=== PATIENT | male | born 1975 | race Caucasian/White ===

== ENCOUNTER 2021-01-20 14:00 | Emergency (ER) | payer OTHER ==
[2021-01-20] MEDS ORDERED: Bacitracin Oint 1 GM U/D Packet TOP ONE (14:26)
--- NOTE | 2021-01-20 14:27 | EDM.PDOC ---
ED HPI GENERAL MEDICAL PROBLEM - General Chief Complaint: Laceration Stated Complaint: CUT LEFT POINTER FINGER Time Seen by Provider: 01/20/21 14:20 Source of Information: Reports: Patient, Family History Limitations: Reports: No Limitations - History of Present Illness INITIAL COMMENTS - FREE TEXT/NARRATIVE: 45-year-old male was moving a smoker when it slipped and cut his index finger on his left hand. He has a 2 cm laceration along the radial aspect of the nail on the index finger, it is into the subcutaneous tissue and slightly opened. No other injury. Onset: Sudden Duration: Hour(s): (Within the last hour) Location: Reports: Upper Extremity, Left Associated Symptoms: Reports: No Other Symptoms - Related Data Allergies Allergy/AdvReac Type Severity Reaction Status Date / Time SEASONAL Allergy Wheezing Uncoded 09/13/20 09:14 Social & Family History - Tobacco Use Tobacco Use Status *Q: Never Tobacco User Second Hand Smoke Exposure: No ED ROS GENERAL - Review of Systems Review Of Systems: See Below Constitutional: Denies: Fever, Chills Respiratory: Reports: No Symptoms Cardiovascular: Reports: No Symptoms GI/Abdominal: Reports: No Symptoms Skin: Reports: Other (See HPI) Neurological: Denies: Paresthesia Psychiatric: Reports: No Symptoms ED EXAM, SKIN/RASH Exam: See Below Exam Limited By: No Limitations General Appearance: Alert, No Apparent Distress Neck: Normal Inspection Respiratory/Chest: No Respiratory Distress Extremities: Other (Exam is otherwise limited to the left hand. Patient has a 2 cm laceration extending from the tip of the finger down the radial aspect along the nail to just distal to the DIP joint. Laceration is just over 2 cm) Neurological: Alert, Oriented Psychiatric: Normal Affect, Normal Mood Course - Vital Signs Last Recorded V/S: Last Vital Signs Temp 98.1 F 01/20/21 14:10 Pulse 68 01/20/21 14:10 Resp 16 01/20/21 14:10 BP 137/95 H 01/20/21 14:10 Pulse Ox 95 01/20/21 14:10 - Orders/Labs/Meds Meds: Medications Discontinued Medications Generic Name Dose Route Start Last Admin Trade Name Freq PRN Reason Stop Dose Admin Bacitracin 1 dose 01/20/21 14:26 Bacitracin Oint 1 Gm U/D Packet TOP 01/20/21 14:27 ONETIME ONE Lidocaine HCl 5 ml 01/20/21 14:26 Lidocaine 1% 5 Ml Sdv INJECT 01/20/21 14:27 ONETIME ONE - Re-Assessments/Exams Free Text/Narrative Re-Assessment/Exam: 01/20/21 14:46 Laceration was anesthetized with 1% lidocaine, cleansed thoroughly with saline and closed with four 5-0 Ethilon sutures. Topical bacitracin was applied and Band-Aids. Sutures can come out in 9 days. Departure - Departure Time of Disposition: 14:57 Disposition: Home, Self-Care 01 Clinical Impression: Laceration of left index finger Qualifiers: Encounter type: initial encounter Damage to nail status: without damage Foreign body presence: without foreign body Qualified Code(s): S61.211A - Laceration without foreign body of left index finger without damage to nail, initial encounter - Discharge Information Instructions: Laceration Care, Adult Referrals: Radha Pizano [facility] [Primary Care Provider] - Forms: ED Department Discharge Care Plan Goals: Keep wound covered and clean while healing. Sutures can come out in 8 or 9 days, recheck sooner if concerns of infection or not healing satisfactorily. Sepsis Event Note (ED) - Evaluation Sepsis Screening Result: No Definite Risk
== END 2021-01-20 15:04 | disposition home or self-care (01) ==
LOC: JP.ED 14:00
DX: S61.211A Laceration without foreign body of left index finger without damage to nail, initial encounter (principal); F17.200 Nicotine dependence, unspecified, uncomplicated; Z91.09 Other allergy status, other than to drugs and biological substances; W26.8XXA Contact with other sharp object(s), not elsewhere classified, initial encounter
CPT/HCPCS: 12001; 99282-25

== ENCOUNTER 2023-02-19 21:36 | Observation (INO) | payer OTHER ==
[2023-02-19] MEDS ORDERED: Albuterol/Ipratropium 3.0-0.5 MG/3 ML Neb Soln NEB ONE ×3 (21:48→23:08)
[2023-02-19 22:01] LABS: BASOPHILS ABSOLUTE AUTO 0.02 K/uL (0.00-0.10); BASOPHILS PERCENT AUTO 0.3 % (0.1-1.3); EOSINOPHILS ABSOLUTE AUTO 0.17 K/uL (0.00-0.40); EOSINOPHILS PERCENT AUTO 2.5 % (0.0-5.4); HEMATOCRIT 42.7 % (38.4-49.7); HEMOGLOBIN 15.3 g/dL (12.9-16.9); IMMATURE GRAN ABSOLUTE AUTO 0.02 K/uL (0.00-0.23); IMMATURE GRAN PERCENT AUTO 0.3 % (0.0-0.7); LYMPHOCYTES ABSOLUTE AUTO 0.81 K/uL (0.8-3.3); MEAN CORPUSCULAR HEMOGLOBIN 30.5 pg (31.6-35.5); MEAN CORPUSCULAR HGB CONC 35.8 g/dL (31.6-35.5); MEAN CORPUSCULAR VOLUME 85.1 fL (81.4-99.0); MONOCYTES ABSOLUTE AUTO 0.94 K/uL (0.20-0.90); MONOCYTES PERCENT AUTO 13.9 % (3.3-12.6); NEUTROPHILS ABSOLUTE AUTO 4.79 K/uL (1.0-7.6); PLATELET COUNT,PLT 197 K/uL (130-375); RED BLOOD CELL COUNT 5.02 M/uL (4.14-5.76); WHITE BLOOD CELL COUNT,WBC 6.8 K/uL (3.2-11.0)
[2023-02-19] MEDS ORDERED: Dexamethasone 4 MG/ML SDV IVPUSH ONE (22:13)
[2023-02-19 22:16] LABS: CALCIUM 8.5 mg/dL (8.5-10.1); CREATININE 1.2 mg/dL (0.8-1.3); EST CRCL DRUG DOSING (CG) 81.05 mL/min; POTASSIUM,K 3.4 mmol/L (3.6-5.2)
[2023-02-19 22:18] LABS: ANION GAP 18.4 mmol/L (5.0-14.0)
[2023-02-19 22:37] LABS: CORONAVIRUS COVID-19 NAA NEGATIVE (NEGATIVE); INFLUENZA A NAA POSITIVE (NEGATIVE); INFLUENZA B NAA NEGATIVE (NEGATIVE); RESPIRATORY SYNCYTIAL VIR NAA NEGATIVE (NEGATIVE)
[2023-02-19] MEDS ORDERED: Sodium Chloride 0.9% 1,000 ML IV ONE (22:41)
[2023-02-20] MEDS ORDERED: Pantoprazole 40 MG Vial IV ONE (01:26)
[2023-02-20] MEDS ORDERED: oxyCODONE 5 MG Tab PO PRN (01:26)
[2023-02-20] MEDS ORDERED: Enoxaparin 40 MG/0.4 ML Syringe SUBCUT SCH ×2 (01:26→21:00)
[2023-02-20] MEDS ORDERED: Sodium Chloride 0.9% 1,000 ML IV SCH (01:26)
[2023-02-20] MEDS ORDERED: Acetaminophen 325 MG Tab PO PRN (01:26)
[2023-02-20] MEDS ORDERED: Ondansetron 4 MG Tab.DIS PO PRN (01:26)
[2023-02-20] MEDS ORDERED: Ibuprofen 600 MG Tab PO PRN (01:26)
[2023-02-20] MEDS ORDERED: LORazepam 2 MG/ML SDV IV PRN (01:26)
[2023-02-20] MEDS ORDERED: Albuterol 0.083% 2.5 MG/3 ML Neb Soln NEB PRN (01:26)
[2023-02-20] MEDS ORDERED: Potassium Chloride 20 MEQ in Premix Bag 1 BAG IV ONE (01:26)
[2023-02-20] MEDS ORDERED: Codeine/guaiFENesin 10-100 MG/5 ML Syrup 5 ML Cup PO PRN (01:49)
[2023-02-20] MEDS: Potassium Chloride 10 MEQ in Premix Bag 1 BAG IV SCH ×2 (02:09→03:21)
[2023-02-20] MEDS: Oseltamivir 75 MG Cap PO SCH ×2 (02:09→09:54)
[2023-02-20] MEDS: Albuterol/Ipratropium 3.0-0.5 MG/3 ML Neb Soln NEB SCH ×2 (02:10→06:08)
[2023-02-20 04:50] LABS: APPEARANCE,URINE CLEAR (CLEAR); BILIRUBIN,URINE NEGATIVE (NEGATIVE); COLOR,URINE YELLOW (YELLOW); GLUCOSE,URINE 100 mg/dL (NEGATIVE); KETONES,URINE 80 mg/dL (NEGATIVE); LEUKOCYTE ESTERASE,URINE NEGATIVE (NEGATIVE); NITRITE,URINE NEGATIVE (NEGATIVE); OCCULT BLOOD,URINE SMALL (NEGATIVE); PROTEIN,URINE 100 mg/dL (NEGATIVE); UROBILINOGEN,URINE 0.2 EU/dL (0.2-1.0)
[2023-02-20 05:49] LABS: AMORPHOUS SEDIMENT,URINE MODERATE; BACTERIA,URINE MODERATE; EPITHELIAL CELLS,URINE RARE; MUCUS,URINE NOT SEEN; RBC,URINE 0-5 (0-5); WBC,URINE 0-5 (0-5)
[2023-02-20] MEDS ORDERED: Cetirizine 10 MG Tab PO SCH (09:00)
[2023-02-20] MEDS ORDERED: Dexamethasone 4 MG/ML SDV IVPUSH SCH (10:00)
[2023-02-20] MEDS ORDERED: Albuterol/Ipratropium 3.0-0.5 MG/3 ML Neb Soln NEB SCH (11:00)
== END 2023-02-20 14:52 | disposition home or self-care (01) ==
LOC: JP.ED 21:36 → JP.2SS 02-20 00:56
PROVIDERS: ADMIT Internal Medicine; ATTEND Internal Medicine
DX: E87.6 Hypokalemia (principal); J10.1 Influenza due to other identified influenza virus with other respiratory manifestations; J96.01 Acute respiratory failure with hypoxia; Z79.899 Other long term (current) drug therapy; Z79.51 Long term (current) use of inhaled steroids; Z20.822 Contact with and (suspected) exposure to COVID-19
CPT/HCPCS: 0241U; 36415; 71045; 80048; 81001; 85025; 94640; 96361; 96365; 96366; 96372; 96375; 99285; A9270; C9113; G0378; J1100; J1650; J3480; J7030; 96374; 99221; 99238; J7620

== ENCOUNTER 2023-02-22 07:54 | Inpatient (IN) | payer OTHER ==
[2023-02-22 08:29] LABS: BASE EXCESS ARTERIAL 1.7 mm/L; BICARBONATE,ARTERIAL 24.5 mmol/L (22.0-26.0); CARBOXYHEMOGLOBIN 1.6 % (0.0-1.6); METHEMOGLOBIN 0.7 %; O2 SATURATION ARTERIAL 95.3 % (95.0-98.0); OXYHEMOGLOBIN 93.1 %; PCO2 ARTERIAL 34.2 mmHg (35.0-42.0); PO2 ARTERIAL 72.1 mmHg (75.0-100.0); TOTAL HEMOGLOBIN 14.4 g/dL (13.5-18.0)
[2023-02-22 08:33] LABS: BASOPHILS ABSOLUTE AUTO 0.05 K/uL (0.00-0.10); BASOPHILS PERCENT AUTO 0.6 % (0.1-1.3); HEMATOCRIT 39.7 % (38.4-49.7); IMMATURE GRAN PERCENT AUTO 2.3 % (0.0-0.7); LYMPHOCYTES ABSOLUTE AUTO 1.64 K/uL (0.8-3.3); LYMPHOCYTES PERCENT AUTO 19.2 % (11.4-47.7); MEAN CORPUSCULAR HEMOGLOBIN 29.8 pg (31.6-35.5); MEAN CORPUSCULAR HGB CONC 35.3 g/dL (31.6-35.5); MEAN CORPUSCULAR VOLUME 84.5 fL (81.4-99.0); MONOCYTES ABSOLUTE AUTO 1.07 K/uL (0.20-0.90); MONOCYTES PERCENT AUTO 12.5 % (3.3-12.6); NEUTROPHILS ABSOLUTE AUTO 5.59 K/uL (1.0-7.6); NEUTROPHILS PERCENT AUTO 65.4 % (40.0-78.1); PLATELET COUNT,PLT 240 K/uL (130-375); WHITE BLOOD CELL COUNT,WBC 8.6 K/uL (3.2-11.0)
[2023-02-22] MEDS: Loperamide 2 MG Cap PO ONE (08:42)
[2023-02-22] MEDS: Benzonatate 100 MG Cap PO ONE ×2 (08:42→11:54)
[2023-02-22] MEDS: Albuterol 0.083% 2.5 MG/3 ML Neb Soln NEB ONE ×2 (08:43→10:10)
[2023-02-22] MEDS: Sodium Chloride 0.9% 1,000 ML IV SCH (09:01)
[2023-02-22 10:10] LABS: A/G RATIO 0.7 (1.2-2.2); ALANINE AMINOTRANSFERASE,ALT 80 U/L (12-78); ALBUMIN 2.8 g/dL (3.4-5.0); ALKALINE PHOSPHATASE 80 U/L (46-116); ASPARTATE AMNIOTRANSFERASE,AST 69 U/L (15-37); BILIRUBIN TOTAL 0.9 mg/dL (0.2-1.0); BLOOD UREA NITROGEN,BUN 13 mg/dL (7-18); CALCIUM 7.9 mg/dL (8.5-10.1); CARBON DIOXIDE,CO2 29 mmol/L (21-32); CHLORIDE,CL 99 mmol/L (100-108); EST CRCL DRUG DOSING (CG) 97.26 mL/min; ESTIMATED GFR 93 mL/min (>60); GLUCOSE RANDOM 110 mg/dL (74-106); SODIUM,NA 135 mmol/L (140-148)
[2023-02-22 10:20] LABS: ANION GAP 9.8 mmol/L (5.0-14.0); POTASSIUM,K 2.8 mmol/L (3.6-5.2)
[2023-02-22] MEDS: Potassium Chloride 10 MEQ in Premix Bag 1 BAG IV ONE (10:39)
[2023-02-22] MEDS: Potassium Chloride 20 MEQ Tab.ER PO ONE (11:47)
[2023-02-22] MEDS ORDERED: Iopamidol 612 MG/ML 100 ML Bottle IV SCH (12:00)
[2023-02-22 12:29] LABS: CORONAVIRUS COVID-19 NAA NEGATIVE (NEGATIVE); INFLUENZA A NAA POSITIVE (NEGATIVE); INFLUENZA B NAA NEGATIVE (NEGATIVE); RESPIRATORY SYNCYTIAL VIR NAA NEGATIVE (NEGATIVE)
[2023-02-22 12:44] LABS: APPEARANCE,URINE CLEAR (CLEAR); BILIRUBIN,URINE NEGATIVE (NEGATIVE); COLOR,URINE YELLOW (YELLOW); GLUCOSE,URINE NEGATIVE (NEGATIVE); KETONES,URINE 40 mg/dL (NEGATIVE); LEUKOCYTE ESTERASE,URINE NEGATIVE (NEGATIVE); NITRITE,URINE NEGATIVE (NEGATIVE); OCCULT BLOOD,URINE TRACE-INTACT (NEGATIVE); PROTEIN,URINE 100 mg/dL (NEGATIVE); UROBILINOGEN,URINE 0.2 EU/dL (0.2-1.0)
[2023-02-22 12:51] LABS: AMORPHOUS SEDIMENT,URINE NOT SEEN; BACTERIA,URINE NOT SEEN; EPITHELIAL CELLS,URINE NOT SEEN; MUCUS,URINE MODERATE; RBC,URINE 0-5 (0-5); WBC,URINE 0-5 (0-5)
[2023-02-22] MEDS ORDERED: Albuterol 0.083% 2.5 MG/3 ML Neb Soln NEB PRN (15:52)
[2023-02-22] MEDS ORDERED: Ondansetron 4 MG Tab.DIS PO PRN (15:52)
[2023-02-22] MEDS ORDERED: Ondansetron 4 MG/2 ML SDV IV PRN (15:52)
[2023-02-22] MEDS ORDERED: Magnesium Hydroxide 400 MG/5 ML Susp 30 ML Cup PO PRN (15:52)
[2023-02-22] MEDS ORDERED: Phenol/Sodium Phenolate Spray 180 ML Bottle MUCMEM PRN (15:52)
[2023-02-22] MEDS ORDERED: Sennosides/Docusate Sodium 50-8.6 MG Tab PO PRN (15:52)
[2023-02-22] MEDS: methylPREDNISolone Sodium Succinate 125 MG/2 ML SDV IVPUSH ONE (15:57)
[2023-02-22] MEDS: NS + KCl 20mEq/L 1,000 ML IV SCH (15:59)
[2023-02-22] MEDS: Sodium Chloride 0.9% 100 ML IV SCH (16:00)
[2023-02-22] MEDS: Sodium Chloride 0.9% 10 ML Syringe FLUSH PRN (16:00)
[2023-02-22] MEDS: Iopamidol 755 Mg/ML 100 ML Bottle IV SCH (16:02)
[2023-02-22] MEDS: Benzocaine/Cetylpyridinium/Menthol Lozenge MUCMEM PRN (16:44)
[2023-02-22] MEDS: Acetaminophen 325 MG Tab PO PRN (16:45)
[2023-02-22] MEDS: Ibuprofen 600 MG Tab PO PRN (16:46)
[2023-02-22] MEDS: Doxycycline 100 MG in Sodium Chloride 0.9% 100 ML IV SCH (17:10)
[2023-02-22] MEDS: Albuterol/Ipratropium 3.0-0.5 MG/3 ML Neb Soln NEB SCH (17:27)
[2023-02-22] MEDS: cefTRIAXone 2 GM in Sodium Chloride 0.9% 50 ML IV SCH (18:20)
[2023-02-22] MEDS: Oseltamivir 75 MG Cap PO SCH (22:07)
[2023-02-22] MEDS: methylPREDNISolone Sodium Succinate 125 MG/2 ML SDV IVPUSH SCH (22:08)
[2023-02-23 04:58] LABS: HEMATOCRIT 36.8 % (38.4-49.7); HEMOGLOBIN 13.2 g/dL (12.9-16.9); MEAN CORPUSCULAR HGB CONC 35.9 g/dL (31.6-35.5); MEAN CORPUSCULAR VOLUME 83.6 fL (81.4-99.0); RED BLOOD CELL COUNT 4.4 M/uL (4.14-5.76); WHITE BLOOD CELL COUNT,WBC 8.9 K/uL (3.2-11.0)
[2023-02-23] MEDS: guaiFENesin 100 MG/5 ML Soln 10 ML UD Cup PO PRN (15:24)
[2023-02-23] MEDS: Potassium Chloride 10 MEQ in Premix Bag 1 BAG IV SCH (16:46)
[2023-02-23] MEDS: Potassium Chloride 20 MEQ Tab.ER PO ONE ×2 (16:46→21:26)
[2023-02-24 06:28] LABS: CALCIUM 8.3 mg/dL (8.5-10.1); CREATININE 0.9 mg/dL (0.8-1.3); EST CRCL DRUG DOSING (CG) 108.07 mL/min; MAGNESIUM 2.1 mg/dL (1.8-2.4); POTASSIUM,K 3.8 mmol/L (3.6-5.2)
[2023-02-24 06:29] LABS: ANION GAP 11.8 mmol/L (5.0-14.0)
[2023-02-24] MEDS: Potassium Chloride 20 MEQ Tab.ER PO ONE (08:58)
[2023-02-25] MEDS: predniSONE 20 MG Tab PO SCH (08:07)
== END 2023-02-25 18:00 | disposition home or self-care (01) | DRG 193 ==
LOC: JP.ED 07:54 → JP.MS 15:01
PROVIDERS: ADMIT Internal Medicine; ATTEND Hospitalist
DX: J10.00 Influenza due to other identified influenza virus with unspecified type of pneumonia (principal); J96.01 Acute respiratory failure with hypoxia; J45.909 Unspecified asthma, uncomplicated; E87.6 Hypokalemia; F32.A Depression, unspecified; E86.0 Dehydration; J20.9 Acute bronchitis, unspecified; J10.1 Influenza due to other identified influenza virus with other respiratory manifestations; Z79.51 Long term (current) use of inhaled steroids; R91.8 Other nonspecific abnormal finding of lung field; Z11.52 Encounter for screening for COVID-19; Z90.89 Acquired absence of other organs; Z79.899 Other long term (current) drug therapy; Z91.048 Other nonmedicinal substance allergy status
CPT/HCPCS: 0241U; 36415; 36600; 71045; 71275; 80048; 80053; 81001; 82803; 83735; 84132; 84145; 85025; 85027; 85379; 86140; 94640; 94667; 96361; 96365; 99285; 99222; 99232; 99238; A9270-GY; J0696; J2930; J3480; J3490; J7030; J7512; J7620; Q9967